=== PATIENT | male | born 1995 | race Caucasian/White ===

== ENCOUNTER → 2018-04-04 | Outpatient (REF) | payer OTHER | LOC: M LAB REF 17:04 | DX: L03.319 Cellulitis of trunk, unspecified (principal) | CPT/HCPCS: 87077; 87186 ==

== ENCOUNTER 2018-07-07 07:53 | Day surgery (SDC) | payer OTHER ==
[~2018-07-07 07:53] MED LIST: LR 1,000 ML IV
[2018-07-07] MEDS ORDERED: MIDAZOLAM INJ 2 MG/2 ML VIAL (J2250) As Ordered (08:50)
[2018-07-07] MEDS ORDERED: fentaNYL 100 MCG/2 ML INJECTION (J3010) As Ordered (08:50)
[2018-07-07] MEDS ORDERED: PROPOFOL 200 MG/20 ML VIAL As Ordered (09:40)
[2018-07-07] MEDS ORDERED: LIDOCAINE 2% INJ 100 MG/5 ML SDV (FOR ANES.) As Ordered (09:40)
[2018-07-07] MEDS ORDERED: dexameTHASONE 4 MG/ML 1ML VIAL (J1100) As Ordered (09:44)
[2018-07-07] MEDS ORDERED: ONDANSETRON 4MG/2ML VIAL (J2405) As Ordered (09:44)
[2018-07-07] MEDS: LIDOCAINE W/EPINEPHRINE 1% 20ML VIAL As Ordered (09:46)
[2018-07-07] MEDS ORDERED: METOCLOPRAMIDE INJ 10MG/2ML VIAL (J2765) IV (10:30)
[2018-07-07] MEDS ORDERED: MEPERIDINE INJ 25 MG/ML VIAL (J2175) IV (10:30)
[2018-07-07] MEDS ORDERED: ONDANSETRON 4MG/2ML VIAL (J2405) IV (10:30)
[2018-07-07] MEDS ORDERED: LR 1,000 ML IV (10:30)
[2018-07-07] MEDS ORDERED: PERCOCET 5MG/325MG TAB PO (10:30)
[2018-07-07] MEDS ORDERED: NORCO, ANEXSIA 5/325MG TABLET (HYDROcodone/ACETAMINOPHEN) PO (10:30)
[2018-07-07] MEDS ORDERED: fentaNYL 100 MCG/2 ML INJECTION (J3010) IV (10:30)
== END 2018-07-07 12:00 | disposition home or self-care (01) ==
LOC: M SDC 07:53
DX: L05.91 Pilonidal cyst without abscess (principal)
CPT/HCPCS: 11770

== ENCOUNTER → 2019-05-30 | Outpatient (REF) | payer OTHER | LOC: M LAB REF 15:44 | PROVIDERS: ATTEND Physician Assistant Medical | DX: R19.7 Diarrhea, unspecified (principal) ==

== ENCOUNTER → 2019-07-24 | Outpatient (REF) | payer OTHER ==
[~2019-07-24] MED LIST changes: +CEPH500C PO; +HYDR-3713 PO; -LR 1,000 ML IV
== END ==
LOC: M LAB REF 12:41
PROVIDERS: ATTEND Physician Assistant
DX: L05.01 Pilonidal cyst with abscess (principal)

== ENCOUNTER 2019-08-03 09:51 | Day surgery (SDC) | payer OTHER ==
[~2019-08-03] VITALS: Ht 177.8 cm; Wt 102.5 kg
[~2019-08-03 09:51] MED LIST changes: +LIDOCAINE 1% MDV 20ML VIAL SQ PRN; +LR 1,000 ML IV ONE
[2019-08-03] MEDS ORDERED: SUGAMMADEX SODIUM 500 MG/5 ML VIAL (BRIDION) As Ordered ONE (10:46)
[2019-08-03] MEDS ORDERED: LIDOCAINE 2% INJ 100 MG/5 ML SDV (FOR ANES.) As Ordered ONE (10:46)
[2019-08-03] MEDS ORDERED: PROPOFOL 200 MG/20 ML VIAL As Ordered ONE ×2 (10:46→12:38)
[2019-08-03] MEDS ORDERED: ROCURONIUM BROMIDE 50 MG/5 ML VIAL As Ordered ONE ×2 (10:46→10:56)
[2019-08-03] MEDS ORDERED: dexameTHASONE 4 MG/ML 1ML VIAL (J1100) As Ordered ONE (10:47)
[2019-08-03] MEDS ORDERED: fentaNYL 250 MCG/5 ML INJECTION (J3010) As Ordered ONE (10:47)
[2019-08-03] MEDS ORDERED: ONDANSETRON 4MG/2ML VIAL (J2405) As Ordered ONE (10:47)
[2019-08-03] MEDS ORDERED: KETOROLAC 60 MG/2 ML VIAL (J1885) As Ordered ONE (10:47)
[2019-08-03] MEDS ORDERED: MIDAZOLAM INJ 2 MG/2 ML VIAL (J2250) As Ordered ONE (10:47)
[2019-08-03] MEDS ORDERED: CHLOROPROCAINE PRES. FREE 3% INJ 20 ML VIAL (J2400) As Ordered ONE (11:47)
[2019-08-03] MEDS ORDERED: fentaNYL 100 MCG/2 ML INJECTION (J3010) IV PRN (13:15)
[2019-08-03] MEDS ORDERED: PERCOCET 5MG/325MG TAB PO PRN (13:15)
[2019-08-03] MEDS ORDERED: ONDANSETRON 4MG/2ML VIAL (J2405) IV PRN (13:15)
[2019-08-03] MEDS ORDERED: LR 1,000 ML IV SCH (13:15)
[2019-08-03] MEDS ORDERED: NORCO, ANEXSIA 5/325MG TABLET (HYDROcodone/ACETAMINOPHEN) PO PRN (13:15)
[2019-08-03 15:15] VITALS: BP 119/67
--- NOTE | 2019-08-06 12:43 | RO ---
DATE OF PROCEDURE: 08/03/2019 PREOPERATIVE DIAGNOSIS: Pilonidal cyst. POSTOPERATIVE DIAGNOSIS: Pilonidal cyst. PROCEDURE: Pilonidal cystectomy. SURGEON: Dr. Amaya RIM BUSTER: None. ANESTHESIA: Spinal with sedation. ESTIMATED BLOOD LOSS (EBL): 5. COMPLICATIONS: None. INDICATIONS FOR PROCEDURE: The patient is a 23-year-old male who presents with recurrent pilonidal cyst. Recommendation was to proceed with pilonidal cystectomy. Risks and benefits of the procedure not limited but including bleeding, infection, cyst recurrence, damage to surrounding structures, need for further surgery were discussed in detail with the patient. Informed was obtained and procedure was planned. PROCEDURE : The patient was back to operating room #6. After sufficient spinal, he was placed in the prone position. Presacral area was sterilely prepped and draped with Betadine. Next, a time-out was done to confirm proper patient and proper procedure. Following that an elliptical incision was made surrounding the open cyst as well as two large sinus tracts inferior to it. The cautery was used to dissect down to the level of the presacral fascia. Once the sinus tract and the two cysts were all removed as one specimen, the area was irrigated with saline. Cautery was used to control hemostasis. The area was then packed with 4 x 4's covered with two more 4 x 4's and tape, thus ending procedure. The patient tolerated procedure well and will be sent to the recovery room in stable condition.
== END 2019-08-03 15:45 | disposition home or self-care (01) ==
LOC: M SDC 09:51
PROVIDERS: ATTEND Surgery
DX: L05.91 Pilonidal cyst without abscess (principal); K21.9 Gastro-esophageal reflux disease without esophagitis; Z88.1 Allergy status to other antibiotic agents
CPT/HCPCS: 11770; 88304; J1100; J1885; J2250; J2400; J2405; J3010

== ENCOUNTER → 2019-08-17 | Outpatient (REF) | payer OTHER ==
[~2019-08-17] MED LIST changes: -LIDOCAINE 1% MDV 20ML VIAL SQ PRN; -LR 1,000 ML IV ONE
== END ==
LOC: M LAB REF 19:24
PROVIDERS: ATTEND Physician Assistant Medical
DX: S31.809A Unspecified open wound of unspecified buttock, initial encounter (principal); Y92.9 Unspecified place or not applicable; Y93.9 Activity, unspecified

== ENCOUNTER → 2020-01-19 | Outpatient (REF) | payer OTHER | LOC: M SFHCADAM 16:09 | PROVIDERS: ATTEND Family Medicine | DX: Z13.1 Encounter for screening for diabetes mellitus (principal); Z13.220 Encounter for screening for lipoid disorders; K21.9 Gastro-esophageal reflux disease without esophagitis; R03.0 Elevated blood-pressure reading, without diagnosis of hypertension; Z68.34 Body mass index [BMI] 34.0-34.9, adult ==

== ENCOUNTER → 2020-03-03 | Outpatient (REF) | payer OTHER ==
[2020-03-03 13:09] LABS: HEMOGLOBIN 15.4 g/dl (13.5-17.5); MEAN CORPUSCULAR HEMOGLOBIN 28.6 pg (27.0-33.0); MEAN CORPUSCULAR HGB CONC 33.5 g/dl (32.0-36.5); MEAN CORPUSCULAR VOLUME 85.5 fl (80.0-96.0); PLATELET COUNT, AUTOMATED 169 10^3/uL (150-450); RED BLOOD COUNT 5.38 10^6/uL (4.30-6.10)
[2020-03-03 13:22] LABS: ALT/SGPT 49 U/L (12-78); BILIRUBIN,TOTAL 0.5 MG/DL (0.2-1.0); BLOOD UREA NITROGEN 18 MG/DL (7-18); CALCIUM LEVEL 9.3 MG/DL (8.5-10.1); CARBON DIOXIDE LEVEL 28 MEQ/L (21-32); CHLORIDE LEVEL 106 MEQ/L (98-107); CHOLESTEROL LEVEL 217 MG/DL (<200); CHOLESTEROL RISK RATIO 5.166 (<5); CREATININE FOR GFR 1.14 MG/DL (0.70-1.30); GLOMERULAR FILTRATION RATE > 60.0 (>60); GLUCOSE, FASTING 98 MG/DL (70-100); HDL CHOLESTEROL 42 MG/DL (>40); LDL CHOLESTEROL 157 MG/DL (<100); NON-HDL-C 175 MG/DL; POTASSIUM SERUM 4.2 MEQ/L (3.5-5.1); SODIUM LEVEL 141 MEQ/L (136-145); TRIGLYCERIDES LEVEL 91 MG/DL (<150)
== END ==
LOC: M LABDRWAD 12:29
PROVIDERS: ATTEND Family Medicine
DX: K21.9 Gastro-esophageal reflux disease without esophagitis (principal); R03.0 Elevated blood-pressure reading, without diagnosis of hypertension; Z13.1 Encounter for screening for diabetes mellitus; Z13.220 Encounter for screening for lipoid disorders; E66.9 Obesity, unspecified; Z68.34 Body mass index [BMI] 34.0-34.9, adult

== ENCOUNTER 2022-12-16 15:25 | Outpatient (RCR) | payer OTHER | END 2022-12-21 | LOC: M PT 15:25 | PROVIDERS: ATTEND Family Medicine | DX: S46.012D Strain of muscle(s) and tendon(s) of the rotator cuff of left shoulder, subsequent encounter (principal) ==

== ENCOUNTER → 2023-01-18 | Outpatient (RCR) | payer OTHER | LOC: M PT 12-23 07:00 | PROVIDERS: ATTEND Family Medicine | DX: S46.012D Strain of muscle(s) and tendon(s) of the rotator cuff of left shoulder, subsequent encounter (principal) ==

== ENCOUNTER 2023-03-24 07:26 | Emergency (ER) | payer OTHER ==
[~2023-03-24] VITALS: Ht 177.8 cm; Wt 104.3 kg
[2023-03-24] MEDS ORDERED: OMEP40CA5 (07:50)
[2023-03-24] MEDS ORDERED: METH-1165 PO (09:04)
[2023-03-24] MEDS ORDERED: IBUP-1022 PO (09:04)
[2023-03-24] MEDS ORDERED: LIDO1PAD TOP (09:04)
[2023-03-24 09:20] VITALS: BP 148/82
== END 2023-03-24 09:22 | disposition home or self-care (01) ==
LOC: M ED 07:26
DX: S39.012A Strain of muscle, fascia and tendon of lower back, initial encounter (principal); X50.0XXA Overexertion from strenuous movement or load, initial encounter; Y92.89 Other specified places as the place of occurrence of the external cause; Y93.89 Activity, other specified; Y99.8 Other external cause status; L05.91 Pilonidal cyst without abscess; Z88.1 Allergy status to other antibiotic agents; Z79.899 Other long term (current) drug therapy

== ENCOUNTER → 2023-04-04 | Outpatient (CLI) | payer OTHER ==
[~2023-04-04] MED LIST changes: +IBUP-1022 PO; +LIDO1PAD TOP; +METH-1165 PO; +OMEP40CA5
== END ==
LOC: M SOG 08:07
PROVIDERS: ATTEND Orthopaedic Surgery
DX: M54.50 Low back pain, unspecified (principal); Z53.8 Procedure and treatment not carried out for other reasons

== ENCOUNTER 2024-09-11 19:49 | Emergency (ER) | payer OTHER ==
[~2024-09-11] VITALS: Ht 182.9 cm; Wt 99.6 kg
[2024-09-11] MEDS ORDERED: AMOX875T (20:11)
[2024-09-11] MEDS ORDERED: PRED20TA (20:11)
[2024-09-11] MEDS: NS 1,000 ML IV ONE (21:02)
[2024-09-11] MEDS: ACETAMINOPHEN 325 MG TAB PO ONE (21:02)
[2024-09-11 21:15] LABS: HEMATOCRIT 44.6 % (42.0-52.0); HEMOGLOBIN 15.3 g/dl (13.5-17.5); MEAN CORPUSCULAR HEMOGLOBIN 29.9 pg (27.0-33.0); MEAN CORPUSCULAR HGB CONC 34.3 g/dl (32.0-36.5); MEAN CORPUSCULAR VOLUME 87.1 fl (80.0-96.0); PLATELET COUNT, AUTOMATED 128 10^3/uL (150-450); RED BLOOD COUNT 5.12 10^6/uL (4.30-6.10); WHITE BLOOD COUNT 4.4 10^3/uL (4.0-10.0)
[2024-09-11 21:36] LABS: ATYPICAL LYMPH 6 % (0-5); BASOPHILS 1 % (0-1); LYMPHOCYTES 7 % (16-44); MONOCYTES 7 % (0-5); NEUTROPHILS 67 % (28-66)
[2024-09-11 21:37] LABS: PLATELET ESTIMATE NORMAL (NORMAL)
[2024-09-11 22:05] LABS: VENOUS BASE EXCESS -2.5 (-2.0-2.0); VENOUS HCO3 21.4 MMOL/L (23.0-27.0); VENOUS O2 SATURATION 95.6 % (60.0-80.0); VENOUS PARTIAL PRESSURE CO2 34.3 mmHg (38.0-50.0); VENOUS PARTIAL PRESSURE O2 78.9 mmHg (30.0-50.0); VENOUS PH 7.412 UNITS (7.330-7.430); VENOUS STANDARD HCO3 22.4 MMOL/L; VENOUS TOTAL CO2 22.4 MMOL/L (24.0-28.0)
[2024-09-11 22:34] LABS: ALKALINE PHOSPHATASE 80 U/L (46-116); ALT/SGPT 55 U/L (7.0-40); AST/SGOT 43 U/L (<34); BILIRUBIN,TOTAL 0.4 MG/DL (0.3-1.2); BLOOD UREA NITROGEN 19 MG/DL (9-23); CALCIUM LEVEL 8.1 MG/DL (8.5-10.1); CARBON DIOXIDE LEVEL 24 MMOL/L (20-31); CHLORIDE LEVEL 109 MMOL/L (98-107); CREATININE FOR GFR 1.08 MG/DL (0.70-1.30); GLOMERULAR FILTRATION RATE > 60.0 (>60); GLUCOSE, FASTING 106 MG/DL (60-100); SODIUM LEVEL 138 MMOL/L (136-145); TOTAL PROTEIN 5.8 G/DL (5.7-8.2)
[2024-09-11 22:35] LABS: MONO SCRN NEGATIVE (NEGATIVE)
[2024-09-12 00:03] LABS: APPEARANCE, URINE CLEAR (CLEAR); BACTERIA, URINE AUTO NEGATIVE (NEGATIVE); BILIRUBIN, URINE AUTO NEGATIVE (NEGATIVE); BLOOD, URINE BLOOD NEGATIVE (NEGATIVE); COLOR, URINE YELLOW (YELLOW); GLUCOSE, URINE (UA) AUTO NEGATIVE (NEGATIVE); KETONE, URINE AUTO 1+ mg/dL (NEGATIVE); LEUKOCYTE ESTERASE, URINE AUTO NEGATIVE (NEGATIVE); MUCUS, URINE SMALL (NEGATIVE); NITRITE, URINE AUTO NEGATIVE (NEGATIVE); PROTEIN, URINE AUTO 1+ mg/dL (NEGATIVE); RBC, URINE AUTO 0 /HPF (0-3); SPECIFIC GRAVITY URINE AUTO 1.028 (1.002-1.035); SQUAMOUS EPITHELIAL CELL UR AU 0 /HPF (0-6); UROBILINOGEN, URINE AUTO 0.2 mg/dL (0.0-2.0); WBC, URINE AUTO 0 /HPF (0-3)
[2024-09-12] MEDS ORDERED: ISOVUE-370 76% 100ML VIAL As Ordered ONE (03:11)
[2024-09-12] MEDS: KETOROLAC 30 MG/ML 1ML VIAL IV ONE (03:25)
[2024-09-12] MEDS: ACETAMINOPHEN 325 MG TAB PO ONE (03:53)
[2024-09-12] MEDS: MAGIC MOUTHWASH 5ML ORAL SYRINGE SS ONE (03:53)
[2024-09-12] MEDS ORDERED: MAGICMW SSP (04:43)
[2024-09-12] MEDS ORDERED: AUGM500T34 PO (04:43)
[2024-09-12] MEDS: AMPICILLIN SOD/SULBACTAM SOD 3 GM in D5W MINI-BAG PLUS 100 ML IV ONE (04:51)
[2024-09-12 05:43] VITALS: BP 128/84; TEMP 98.1; O2SAT 98
== END 2024-09-12 05:46 | disposition home or self-care (01) ==
LOC: M ED 19:49
DX: J02.9 Acute pharyngitis, unspecified (principal); F17.290 Nicotine dependence, other tobacco product, uncomplicated; F10.10 Alcohol abuse, uncomplicated; Z88.1 Allergy status to other antibiotic agents; Z79.2 Long term (current) use of antibiotics; Z79.52 Long term (current) use of systemic steroids
CPT/HCPCS: 70491; 71046; 80053; 81001; 82803; 83605; 85025; 86308; 87040; 87486; 87581; 87633; 87798; 87880; 93041; 94760; 96361; 96365; 96374; 99285; J0295; J1885; Q9967

== ENCOUNTER 2024-09-13 09:51 | Emergency (ER) | payer OTHER ==
[~2024-09-13] VITALS: Ht 182.9 cm; Wt 98.4 kg
[~2024-09-13 09:51] MED LIST changes: +AMOX875T; +AUGM500T34 PO; +MAGICMW SSP; +PRED20TA
[2024-09-13 10:12] VITALS: BP 137/76; TEMP 98; O2SAT 98
== END 2024-09-13 10:53 | disposition left against medical advice (07) ==
LOC: M ED 09:51
DX: Z53.21 Procedure and treatment not carried out due to patient leaving prior to being seen by health care provider (principal)